=== PATIENT | male | born 1945 | race Caucasian/White ===

== ENCOUNTER 2020-11-03 10:40 | Emergency (ER) | payer MEDICARE, OTHER, SELFPAY ==
[2020-11-03] VITALS (11 sets, daily range): BP systolic 120–150; BP diastolic 64–100; PULSE 66–82; RESP 16–18; O2SAT 95–99; BMI 27.4
--- NOTE | 2020-11-03 10:59 | W.ED.COVID ---
HPI - COVID General: Chief Complaint: Infusion: Covid [facility] Stated Complaint: Covid+/BAM Time Seen by Provider: 11/03/20 10:47 History of Present Illness: HPI Narrative: 75-year-old male recently diagnosed with Covid he has relatively minimal secondary medical problems. He was directed here for monoclonal antibody infusion. He states he did symptoms for about 2 to 3 days now. He has had some sinus congestion no anosmia cough has been nonproductive denies diarrhea minimal myalgias low-grade subjective fever. He is not diabetic no history of hypertension no chronic respiratory diseases. MD complaint: known COVID positive Prior covid testing: yes, results known Prior testing date: 11/02/20 COVID 19 common symptoms: positive fever(s), chills, non-productive cough, fatigue, body aches, headache(s) and nasal congestion; negative dyspnea, loss of sense of smell and/or taste, throat pain, nausea or vomiting COVID 19 other sytmptoms: negative chest pain Onset (ago): day(s) (~3) Severity: mild Treatment prior to arrival: acetaminophen and antibiotics COVID Results: No Data to Display Review of Systems Const: Reports: fever(s), chills, body aches and fatigue ENMT: Reports: nasal congestion; Denies: throat pain Card: Denies: chest pain, edema, dyspnea on exertion or orthopnea Resp: Reports: non-productive cough; Denies: dyspnea GI: Denies: nausea or vomiting : Denies: flank pain, dysuria, urinary frequency or urinary urgency Skin/Breast: Denies: rash or pruritus Neuro: Reports: headache(s) Physical Exam Const: COMMON NORMALS: no acute distress GENERAL APPEARANCE: cooperative and comfortable ORIENTATION/CONSCIOUSNESS: Yes awake, Yes oriented to person, Yes oriented to place and Yes oriented to time HENMT: COMMON NORMALS: normocephalic and atraumatic HEAD & SCALP: normocephalic and atraumatic Neck/C-Spine: COMMON NORMALS: no JVD Resp: COMMON NORMALS: normal respiratory effort, No retractions, No use of accessory muscles and clear to auscultation bilaterally AUSCULTATION: clear to auscultation bilaterally Cardio: COMMON NORMALS: no JVD, regular rate, regular rhythm and No murmurs present (Cardio) RATE: regular rate RHYTHM: regular rhythm GI: COMMON NORMALS: Soft to palpation and No hepatosplenomegaly present AUSCULTATION: Yes normoactive bowel sounds PALPATION: Yes Soft to palpation, No Tenderness to palpation present (GI), No Guarding due to palpation present (GI) and Yes No hepatosplenomegaly present Extremity: COMMON NORMALS: normal to inspection, capillary refill normal, no clubbing, cyanosis or edema, no calf tenderness and no pedal edema Neuro: SENSORIUM/ORIENTATION: Yes oriented to person, Yes oriented to place and Yes oriented to time Skin: COMMON NORMALS: no rashes or lesions noted GENERAL SKIN EXAM: no rashes or lesions noted Course Vital Signs: Vital signs: Vital Signs Pulse Rate 67 11/03/20 14:00 Respiratory Rate 18 11/03/20 14:00 Blood Pressure 120/68 11/03/20 14:00 Pulse Oximetry 98 11/03/20 14:00 MDM - COVID MDM Narrative: Medical decision making narrative: Reviewed risk benefits and alternatives patient would like to proceed. Patient given monoclonal antibody infusion observed for an appropriate period of time of discharge. Just discharge him home with dexamethasone recommend he maintain quarantine as per instructions of the health department return if has further problems. COVID Results: No Data to Display Monoclonal Antibody Treatments Inclusion/Exclusion Criteria weight >/= 40 kg and + direct Sars-Cov-2 test less than 7-10 days ago age >/= 65 not requiring hospitalization, not requiring oxygen (if not chronically on oxygen) and no increase oxygen requirement (if chronically on oxygen) Patient education patient/family/caregiver received/reviewed fact sheet, Emergency Use Authorization/unapproved drug status discussed with patient/family/caregiver, alternatives to this treatment discussed with patient/family/caregiver, risks and benefits of medication reviewed with patient/family/caregiver, patient/family/caregiver given opportunity for questions, which were answered and patient consents to receiving Monoclonal Antibody Treatment Plan for treatment Meets criteria for Monoclonal Antibody infusion Ordering Monoclonal Antibody infusion for today Discharge Plan Discharge Patient Disposition: Home Condition: Stable Prescriptions: New dexamethasone 6 mg tablet 6 mg PO DAILY Qty: 7 RF: 0 No Action multivitamin Tablet 1 tab PO DAILY RF: 0 azithromycin 250 mg tablet See Rx Instructions .ROUTE .COMPLEX RF: 0 Aspir-81 81 mg Tablet,Delayed Release (Dr/Ec) 81 mg PO DAILY RF: 0 Vitamin C 1 tab PO DAILY RF: 0 Vitamin D3 1 cap PO DAILY RF: 0 zinc 1 cap PO DAILY RF: 0 Discharge Orders: Discharge ED (Routine); Ordered 11/03/20 Ordered By: Joon Salomon Referrals: Joon Salomon, DO [Emergency Provider] - Discharge Diet: Usual diet Discharge Activity: Increase activity as tolerated Activity Restrictions/Additional Instructions: Maintain self quarantine for 10 days or until symptoms have resolved. 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
--- NOTE | 2020-11-03 13:16 | PC.NURSE ---
BAM infusion complete at this time, pt remains alert and oriented, no s/s of adverse reaction at this time, respirations appear even and unlabored, O2 99% on RA
== END 2020-11-03 13:46 | disposition home or self-care (01) ==
PROVIDERS: Emergency Provider Family Medicine
DX: U07.1 COVID-19 (principal); Z79.82 Long term (current) use of aspirin
CPT/HCPCS: 12345; 96365; 99281; 99283